=== PATIENT | male | born 1975 | race Caucasian/White ===

== ENCOUNTER 2020-03-21 16:50 | Emergency (ER) | payer OTHER ==
[~2020-03-21] VITALS: Ht 190.5 cm; Wt 86.2 kg
[2020-03-21] MEDS ORDERED: SEROQUEL200 MG PO (17:08)
[2020-03-21] MEDS ORDERED: ZOLOFT50 M1 PO (17:08)
[2020-03-21 23:00] VITALS: BP 116/71
== END 2020-03-21 23:00 | disposition short-term general hospital (02) ==
LOC: M.ERS 16:50
DX: S62.111A Displaced fracture of triquetrum [cuneiform] bone, right wrist, initial encounter for closed fracture (principal); Z20.828 Contact with and (suspected) exposure to other viral communicable diseases; S63.094A Other dislocation of right wrist and hand, initial encounter; Z79.899 Other long term (current) drug therapy; W11.XXXA Fall on and from ladder, initial encounter; Y93.89 Activity, other specified; Y92.89 Other specified places as the place of occurrence of the external cause; Y99.8 Other external cause status